=== PATIENT | female | born 1935 | race Caucasian/White ===

== ENCOUNTER 2017-02-01 20:22 | Inpatient (IN) | payer BC ==
--- NOTE | ~2017-02-01 | DS ---
Discharge Summary [facility] [address] [place]. [address] NAME: WES FORRESTER : 35 STATUS : DIS IN PAT#: [id number] AGE: 81 ADM/REG DATE : 02/02/17 MR#: [id number] REPORT SERV DATE: 02/04/17 DICTATED BY: JAROCHO FERNÁNDEZ DATE: 02/03/17 REPORT STATUS : Draft TRANSCRIBED BY: BRITTANY DATE: 02/03/17 ADMISSION DATE: 02/02/2017 DISCHARGE DATE: 02/03/2017 DISCHARGE DIAGNOSES: 1. Acute diverticulitis. 2. Escherichia coli urinary tract infection. 3. Hematochezia, resolved. 4. Chronic atrial fibrillation. 5. Chronic systolic heart failure. 6. History of coronary artery disease, status post coronary stents. 7. History of recent herpes zoster ophthalmicus, present on admission. 8. Hypertension. 9. Dyslipidemia. 10.Left adrenal adenoma. DISCHARGE CONDITION: Stable. INVASIVE PROCEDURE: None. IMAGING DURING THIS ADMISSION: CT abdomen and pelvis: 1. Extensive diverticulosis and diffuse colon wall thickening involving the sigmoid colon with mild infiltration of surrounding fat plain suspicious for acute diverticulitis pattern. Recommend consider follow up colonoscopy after appropriate treatment to confirm that there was no underlying neoplastic process. 2. Very large chronic hiatal hernia containing majority of the stomach within the thoracic cavity and now also containing a short segment of the non-incarcerated transverse colon not present on prior CT. 3. Status post cholecystectomy and apparent appendicectomy. 4. Small 1.3 left adrenal adenoma. 5. Probable prominent 3.4 cm diameter diverticulum of the 2nd portion of the duodenum. 6. Small cyst posterior midpole of the left kidney. HISTORY OF PRESENT ILLNESS: For detailed HPI, please make reference to Dr. Joel Flores's dictation on 02/02/2017. In brief, this is an 81-year-old female with medical history of recurrent diverticulitis, chronic atrial fibrillation, history of coronary artery disease, status post PCI, on Plavix and aspirin at home, who presented to the hospital with a chief complaint of abdominal pain and bright red blood per rectum of a day duration. Episode of bright red blood was precipitated by laxative use 24-hours prior to presentation. In the ER, blood pressure was 136/73, respiratory rate was 22, temperature 97.8, saturating 95% on room air. Physical exam was significant for left lower quadrant abdominal tenderness with localized guarding. No distention. No rebound. No palpably enlarged organomegaly. LABORATORY DATA: White blood cells 7.6, hemoglobin 13.4, platelets 372. Chemistry: Sodium 134, creatinine 1.0, lipase 265. Urinalysis: Large leukocyte esterase and positive nitrite. Discharge Summary [address] [address] NAME: WES FORRESTER : 35 STATUS : DIS IN PAT#: [id number] AGE: 81 ADM/REG DATE : 02/02/17 MR#: [id number] REPORT SERV DATE: 02/04/17 DICTATED BY: JAROCHO FERNÁNDEZ DATE: 02/03/17 REPORT STATUS : Draft TRANSCRIBED BY: BRITTANY DATE: 02/03/17 An assessment of acute diverticulitis and urinary tract infection was made in the ER. The patient was admitted to the Hospitalist Service. HOSPITAL COURSE: 1. Acute diverticulitis (recurrent). Blood cultures were taken. The patient was started on broad-spectrum antibiotics with IV levofloxacin and Flagyl. Gastroenterology was consulted, who will help guide the patient's management during the course of this admission. The patient's abdominal pain subsequently resolved. Bright red blood per rectum also subsequently resolved. It was noted that the patient should continue antibiotics treatment for a total of 7-10 days and follow up with Gastroenterology as an outpatient for possible colonoscopy. At the time of discharge, the patient was prescribed Flagyl and levofloxacin. 2. Bright red blood per rectum. The patient's hemoglobin ranged from 11 to 12.5 throughout the course of this admission. No further episodes of bright red blood per rectum noted during this admission. The patient was advised to follow up with Gastroenterology for possible colonoscopy. Etiology of bright red blood per rectum likely related to the patient's diverticulitis. Also during this admission, the patient's aspirin and Plavix were held. At the time of discharge, it was noted by GI that it is okay for patient to resume aspirin and Plavix and follow up with Gastroenterology as an outpatient. 3. History of coronary artery disease, status post PCI. No chest pain throughout the course of this admission. No acute ST-T wave changes. The patient's Plavix was transiently held, but at the time of discharge, the patient was advised to resume Plavix and aspirin and followup with primary senior publications specialist as an outpatient. 4. Urinary tract infection. The patient's urine culture was positive for E. coli. Blood cultures were negative. E. coli was sensitive to Cipro. The patient was advised to continue ciprofloxacin as an outpatient. DISCHARGE DISPOSITION: Home. DISCHARGE MEDICATIONS: 1. Levofloxacin 750 mg p.o. daily. 2. Flagyl 500 mg p.o. b.i.d. 3. Aspirin 81 mg p.o. daily. 4. Plavix 75 mg p.o. daily. 5. Atorvastatin 40 mg p.o. daily. 6. Cardizem 120 mg p.o. daily. 7. Lisinopril 5 mg p.o. daily. 8. Valacyclovir 500 mg p.o. t.i.d. to complete 10 days therapy. 9. Lorazepam 2 mg p.o. at bedtime. 10.Hydrochlorothiazide 12.5 mg p.o. daily. 11.Centrum Silver one p.o. daily. DISCHARGE FOLLOWUP: 1. Follow up with Gastroenterology within one to two weeks of discharge. 2. Follow up with primary care physician within one week of discharge. Discharge Summary [address] [address] NAME: WES FORRESTER : 35 STATUS : DIS IN PAT#: [id number] AGE: 81 ADM/REG DATE : 02/02/17 MR#: [id number] REPORT SERV DATE: 02/04/17 DICTATED BY: JAROCHO FERNÁNDEZ DATE: 02/03/17 REPORT STATUS : Draft TRANSCRIBED BY: BRITTANY DATE: 02/03/17 3. Continue followup with Ophthalmology for management of herpes zoster ophthalmicus which was present prior to this admission. Greater than 35 minutes was used to prepare this patient's discharge, reconcile medication, advise the patient on discharge plans and followup. DICTATED BY: MD INOCENTE Mccullough/BRITTANY Jarocho Fernández MD / [id number] CC: MD Reji Mccullough II, Wallace F.
--- NOTE | ~2017-02-01 | HP ---
History And Physical [address] [place]. [address] NAME: WES FORRESTER : 35 STATUS : ADM IN PAT#: [id number] AGE: 81 ADM/REG DATE : 02/02/17 MR#: [id number] REPORT SERV DATE: 02/02/17 DICTATED BY: ANJALI BAILEY DATE: 02/02/17 REPORT STATUS : Draft TRANSCRIBED BY: MODL DATE: 02/02/17 DATE OF ADMISSION: 02/02/2017 CHIEF COMPLAINT: An 81-year-old female presenting with abdominal pain and bright red blood per rectum. HISTORY OF PRESENTING ILLNESS: The patient's history was obtained through careful interview with the patient and daughter coupled with review of [facility] and [facility] medical records. About 3 p.m. on the afternoon of admission, the patient had sudden rectal urgency. She had taken some laxatives over the 24 hours prior because of constipation, and she began to have some slight loose stools. She developed increasing abdominal pain and then bloody stool by about 5 p.m. in the evening. She has left lower quadrant abdominal discomfort that radiates to the back, a cramping quality, 6 to 7/10 severity, that comes in severe waves. She has had fevers, chills, severe headache. No dysuria. No urinary frequency. No nausea or vomiting. No shortness of breath. No cough. No chest pain. No lightheadedness. REVIEW OF SYSTEMS: Otherwise, a 14-point review of systems was obtained and was negative. PAST MEDICAL HISTORY: 1. Coronary artery disease, status post stent placement, 2013. 2. Hypertension. 3. Atrial fibrillation. 4. Recurrent diverticulitis, seen by Dr. Woodruff. 5. Dyslipidemia. 6. Hiatal hernia. 7. Systolic congestive heart failure. Ejection fraction 45%, 2013. 8. Adrenal adenoma. 9. Left shingles to just the eye area on the left side. PAST SURGICAL HISTORY: 1. Cholecystectomy. 2. Appendectomy. 3. Hysterectomy. 4. C5 fracture neck surgery. ALLERGIES: NO KNOWN DRUG ALLERGIES. History And Physical [address] [address] NAME: WES FORRESTER : 35 STATUS : ADM IN [facility]#: [id number] AGE: 81 ADM/REG DATE : 02/02/17 MR#: [id number] REPORT SERV DATE: 02/02/17 DICTATED BY: ANJALI BAILEY DATE: 02/02/17 REPORT STATUS : Draft TRANSCRIBED BY: BRITTANY DATE: 02/02/17 SOCIAL HISTORY: Quit smoking more than 40 years ago. No alcohol abuse. 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 She became a 36 years ago. Lives with her daughter on [place], [place]. FAMILY HISTORY: Daughter with aortic valve replacement. Mother with coronary artery disease. Strong family history of stroke. CURRENT MEDICATIONS: Include eye drops, aspirin 81 mg p.o. daily, Lipitor 40 mg p.o. daily, Plavix 75 mg p.o. daily, Maxitrol eye drops, Diltiazem extended release 120 mg p.o. daily, hydrochlorothiazide 12.5 mg p.o. daily, lisinopril 5 mg p.o. daily, Ativan 2 mg at bedtime as needed, multivitamins, vitamin E, vitamin B, Valtrex 1 g p.o. t.i.d. PHYSICAL EXAMINATION: VITAL SIGNS: Temperature 97.8, pulse 92, blood pressure 136/76, respiratory rate 22, and O2 saturation 98% on room air. GENERAL: A pleasant, cooperative female, in evidence of mild distress secondary to her abdominal pain. HEENT: Pupils equally round and reactive to light. No conjunctival pallor. No scleral icterus. Nares are patent. Oropharynx is clear of obstruction. Moist mucous membranes. NECK: Trachea midline. No thyromegaly. LYMPHATIC: No cervical lymphadenopathy. No supraclavicular lymphadenopathy. RESPIRATORY: Clear to auscultation at bases. No wheezes, rales, or rhonchi. Normal respiratory effort. CARDIOVASCULAR: Regular rate and rhythm. No murmurs, rubs, or gallops. No extremity edema is appreciated. ABDOMEN: Significant left lower quadrant abdominal discomfort with localized guarding. No distention. Active bowel tones. No hepatosplenomegaly. DERMATOLOGIC: Warm and dry extremities. No pallor. No cyanosis. PSYCHIATRIC: Normal affect. Good mood. Alert and oriented x3. LABORATORY DATA: White blood cell count , hemoglobin 13, hematocrit 40, platelets 372. Sodium 134, potassium 4.1, chloride 105, bicarb 27, BUN 19, creatinine , glucose 99. INR 1.0. Lipase 265. Urinalysis shows 125 white blood cells, large leukocyte esterase, positive nitrites. STUDIES: 1. EKG by my own evaluation shows atrial fibrillation. 2. CT scan of the abdomen reported diverticulitis changes. ASSESSMENT AND PLAN: 1. Acute diverticulitis. Place on IV antibiotics, IV fluids. Full liquid diet. Provide supportive care. 2. Urinary tract infection. Check urine culture. Place on IV antibiotics. 3. Hematochezia. Obtain a GI consult with Dr. Woodruff. Hold Plavix and aspirin for now. 4. Atrial fibrillation. Has not been placed on anticoagulation by her outpatient installer technician. We will check telemetry. 5. Chronic systolic congestive heart failure. History And Physical [address] [address] NAME: WES FORRESTER : 35 STATUS : ADM IN [facility]#: [id number] AGE: 81 ADM/REG DATE : 02/02/17 MR#: [id number] REPORT SERV DATE: 02/02/17 DICTATED BY: ANJALI BAILEY DATE: 02/02/17 REPORT STATUS : Draft TRANSCRIBED BY: BRITTANY DATE: 02/02/17 6. Left eye shingles, seen in outpatient by Ophthalmology. Continue Valtrex. TAQUERIA/YENIFERL Anjali Bailey M.D. / [id number] CC: MD Jil Mccullough M.D. James Scott Manton, M.D.
--- NOTE | ~2017-02-01 | CN ---
Consultation Report [facility] [address] [place]. [address] NAME: WES FORRESTER : 35 STATUS : ADM IN PAT#: [id number] AGE: 81 ADM/REG DATE : 02/02/17 MR#: [id number] REPORT SERV DATE: 02/02/17 DICTATED BY: HARLEEN DUKES DATE: 02/02/17 REPORT STATUS : Draft TRANSCRIBED BY: MODL DATE: 02/02/17 GI CONSULTATION DATE OF CONSULTATION: 02/02/2017 REASON FOR CONSULTATION: Evaluation and management of hematochezia, acute diverticulitis, abdominal pain. HISTORY OF PRESENT ILLNESS: Ms. Forrester is a very pleasant 81-year-old female patient, who is known to Dr. Vick Woodruff in the outpatient setting, who presented on 02/02 with a chief complaint of abdominal pain and hematochezia. The patient states she had symptom onset yesterday around 1500 hours. She had had some problems with constipation earlier within the last 24 hours, which she treated with Senokot. She states that she had good results and had multiple bowel movements throughout the day yesterday. However, yesterday afternoon, around 3 o'clock, she began to pass bright red blood per rectum. She states that this happened several times. She had increasing left-sided abdominal pain, thus prompting her to come to [facility] Emergency Room for further evaluation. She states that she had subjective fevers, some chilling. No chest pain or shortness of breath. No dysuria. No nausea, no vomiting. No melena. She had a CT scan done on admission, which showed extensive diverticulosis and diffuse colon wall thickening involving the sigmoid with mild infiltration of the surrounding fat planes, suspicious for acute diverticulitis. She had also a very large chronic hiatal hernia that contained a majority of the stomach within the thoracic cavity, also containing a short segment of non-incarcerated transverse colon. She also had noted urinary tract infection on her UA on admission. She has been started on Levaquin and Flagyl. She feels somewhat better. She states the last time she passed stool or blood per rectum was around midnight last night in the emergency room before making it up to the room. Her white blood cell count has remained normal at 7.6 and 7.4. Her hemoglobin is stable, admission 13.4, presently 12.7. She states that she feels improved. She is still sore in the left side and is requesting to be discharged home today. However, I have discussed with the patient as well as the daughter that would keep her at least for 24 hours for IV antibiotics and to monitor for return of bleeding. There were no immediate plans for us to pursue colonoscopy at this time. The last time she underwent colonoscopy with Dr. Woodruff was 12/2013. This was followup from a colitis episode earlier in that year. On her colonoscopy, 01/23/2014, she had a normal terminal ileum, sigmoid colon, descending colon; diverticulosis; she has had some erythema in the sigmoid colon that was biopsied which returned within normal limits. She was last seen in our office in 06/2016 with complaints of melena and she was scheduled for an EGD, which she canceled as her melena complaints resolved. PAST MEDICAL HISTORY: Positive for colitis; diverticulosis; diverticulitis; hemorrhoids; coronary artery disease, MD, status post stenting; hypertension; atrial fibrillation; dyslipidemia; large hiatal hernia; systolic CHF, last ejection fraction was estimated at 45%; adrenal adenoma; left shingles to the eye. Consultation Report [place] [id number] [facility] [place]. [address] NAME: WES FORRESTER : 35 STATUS : ADM IN [facility]#: [id number] AGE: 81 ADM/REG DATE : 02/02/17 MR#: [id number] REPORT SERV DATE: 02/02/17 DICTATED BY: HARLEEN DUKES DATE: 02/02/17 REPORT STATUS : Draft TRANSCRIBED BY: BRITTANY DATE: 02/02/17 PAST SURGICAL HISTORY: Includes a cholecystectomy, appendectomy, hysterectomy, C5 fracture of the neck with surgical intervention, coronary artery stenting. ALLERGIES: SHE HAS NO KNOWN ALLERGIES. SOCIAL HISTORY: Past tobacco. No alcohol. No illicits. She is retired and lives with her daughter. FAMILY HISTORY: Noncontributory from a GI standpoint. HOME MEDICATIONS: Artificial tears, aspirin, Lipitor, Plavix, Maxitrol, Taztia, Microzide, Proventil, Ativan, Centrum multivitamin, vitamin E, vitamin B, Valtrex. REVIEW OF SYSTEMS: 10-point review of systems obtained, pertinent positives addressed in the history of present illness. PERTINENT LABORATORY DATA: Sodium 137, potassium is 3.7, BUN is 15, creatinine 0.91. White count 7.4, hemoglobin is 12.7 with hematocrit of 37.6, platelet count 309. INR of 1.1. PHYSICAL EXAMINATION: VITAL SIGNS: Temperature is 97.5, pulse 92, respirations 20, blood pressure 120/71. NEURO: Reveals an alert female, sitting up in the bed with no focal deficits being noted. GENERAL: Cooperative, in no apparent distress. Awake, alert, and oriented x3. HEAD, EARS, EYES, NOSE, AND THROAT: Anicteric. Pupils equal, round, reactive to light and accommodation. Normocephalic and atraumatic. NECK: No JVD. No palpable nodes. Supple. LUNGS: Clear anteriorly with normal respiratory effort exhibited. Equal expansion. CARDIOVASCULAR SYSTEM: Regular rate and rhythm. ABDOMEN: Soft with tenderness to palpation mildly to the left side with no rebound or guarding elicited on exam. She has no organomegaly appreciated. Active bowel sounds in all four quadrants. EXTREMITIES: No edema. Normal distal pulses. SKIN: Warm, dry, and intact. ASSESSMENT: 1. Acute sigmoid colon diverticulitis. 2. Abdominal pain secondary to acute sigmoid colon diverticulitis. 3. Hematochezia secondary to acute sigmoid colon diverticulitis. 4. Recent constipation. 5. Urinary tract infection, present on admission. 6. History of coronary artery disease, myocardial infarction and stent, on Plavix, currently on hold. Consultation Report [address] [place]. [address] NAME: WES FORRESTER : 35 STATUS : ADM IN [facility]#: [id number] AGE: 81 ADM/REG DATE : 02/02/17 MR#: [id number] REPORT SERV DATE: 02/02/17 DICTATED BY: HARLEEN DUKES DATE: 02/02/17 REPORT STATUS : Draft TRANSCRIBED BY: MODL DATE: 02/02/17 PLAN: 1. Full liquid diet, advance as tolerated to soft diet in the morning. 2. We will continue her IV antibiotics for at least 24 hours. 3. Monitor H and H. 4. No plans for colonoscopy at this point in time. 5. Would recommend, if no return of bleeding and able to tolerate a diet, that the patient could be discharged on 02/03/2017 to follow up with Dr. Woodruff in two to four weeks. We will follow. EL/BRITTANY WALI Lee / [id number] CC: MD Reji Mccullough II, Sam Rose
[~2017-02-01 20:22] MED LIST: ASAB PO; ATIVAN2 MG PO; ATV.5 PO; ATV1 PO; AVAPRO300 MG PO; BENICAR; CENTRUM TAB1 TAB PO; CIP5 PO; COREG3 PO; DEXLANSOPRAZOLE; HALF81 PO; HYDROCHLOROT12.5 MG PO; HYZAAR 50/12.51 TAB PO; KAPIDEX60 MG PO; LOP25 PO; LOTENSIN HCT1 TA1 PO; PLAVIX PO; POT GLUCONAT595 M1 PO; POTASSIUM PO; PRIN5 PO; TOPXL25 PO; VIT; VITAM; VITAMIN B-625 MG PO; VITAMIN D; VITAMIN E; ZANTAC 75 PO; ZOCOR40 PO
[2017-02-01 21:11] LABS: BASOPHILS 0.5 %; BASOPHILS ABSOLUTE 0.04 10/3/uL (0.0-0.16); EOSINOPHILS 0.9 %; EOSINOPHILS ABSOLUTE 0.07 10/3/uL (0.0-0.53); ER CBC TAT 0 Hrs 07 Mins; HEMATOCRIT 40.1 % (36.0-48.0); HEMOGLOBIN 13.4 g/dL (12.0-16.0); IMMATURE GRANULOCYTES 0.1 %; IMMATURE GRANULOCYTES ABSOLUTE 0.01 10/3/uL (0.0-0.11); LYMPHOCYTES ABSOLUTE 1.36 10/3/uL (0.67-4.30); MEAN CORPUS HGB CONC 33.4 g/dL (32.0-36.0); MEAN CORPUSCULAR HEMOGLOB 30.7 pg (26.0-34.0); MEAN PLATELET VOLUME 8.3 fL (9.2-13.0); MONOCYTES 6.7 %; MONOCYTES ABSOLUTE 0.51 10/3/uL (0.21-1.20); NEUTROPHILS 73.8 %; NEUTROPHILS ABSOLUTE 5.57 10/3/uL (2.02-8.40); PLATELET COUNT 372 10/3/uL (150-400); RBC DISTRIBUTION WIDTH 13.7 % (12.0-16.0); RED CELL COUNT 4.36 10/6/uL (4.0-5.6); WHITE BLOOD CELLS 7.6 10/3/uL (4.5-10.5)
[2017-02-01 21:12] LABS: MANUAL DIFF NO %
[2017-02-01 21:29] LABS: PARTIAL THROMBO TIME 20.1 SEC (22.5-37.2)
[2017-02-01 21:33] LABS: A/G RATIO 1.2 (0.7-1.9); ALBUMIN 3.7 G/DL (3.5-5.0); BUN (BLOOD UREA NITROGEN) 19 MG/DL (6-23); CALCIUM, SERUM 9.2 MG/DL (8.5-10.4); CHLORIDE, SERUM 105 MMOL/L (96-112); CO2 (CARBON DIOXIDE) 27 MMOL/L (24-34); GFR AFRICAN AMERICAN 61 ML/MIN (>=60); GFR NON AFRICAN AMERICAN 53 ML/MIN (>=60); GLOBULIN 3.2 G/DL (2.5-4.1); GLUCOSE, SERUM 99 MG/DL (60-99); POTASSIUM, SERUM 4.1 MMOL/L (3.5-5.3); SGOT(AST) 18 U/L (5-40); SGPT(ALT) 22 U/L (5-65); SODIUM, SERUM 134 MMOL/L (135-148); TOTAL BILIRUBIN 0.4 MG/DL (0-1.2); TOTAL PROTEIN 6.9 G/DL (6.0-8.5)
[2017-02-01 21:34] LABS: ALKALINE PHOSPHATASE 103 U/L (45-117)
[2017-02-01 21:51] LABS: DIRECT BILIRUBIN 0.1 MG/DL (0.0-0.4); INDIRECT BILIRUBIN(NOT ORDER) 0.3 MG/DL (0.1-0.9)
[2017-02-01 22:25] LABS: ASCORBIC ACID (UR NOT ORDER) NEG (NEG); BILIRUBIN, URINE NEGATIVE (NEG); ER URINALYSIS TAT 0 Hrs 16 Mins; KETONE, URINE TRACE MG/DL (NEG); LEUKOCYTE ESTERASE(NOT OR LARGE (NEG); NITRITE (URINE) POS (NEG); WBC (NOT ORDERED) (RFLEX) 125 (0-5)
[2017-02-01] MEDS ORDERED: MAXITOINT OPH (23:51)
[2017-02-01] MEDS ORDERED: VALTREX5 PO (23:56)
[2017-02-01] MEDS ORDERED: TAZTIA X4 PO (23:57)
[2017-02-01] MEDS ORDERED: MICROZIDE PO (23:58)
[2017-02-01] MEDS ORDERED: PLAVIX PO (23:58)
[2017-02-01] MEDS ORDERED: PRIN5 PO (23:58)
[2017-02-01] MEDS ORDERED: ATIVAN2 MG PO (23:58)
[2017-02-01] MEDS ORDERED: CENTRUM PO (23:59)
[2017-02-01] MEDS ORDERED: HALF81 PO (23:59)
[2017-02-02] MEDS ORDERED: VITAMIN E OTC PO (00:01)
[2017-02-02] MEDS ORDERED: VITAMIN B OTC PO (00:02)
[2017-02-02] MEDS ORDERED: REFRESH OPH (00:05)
[2017-02-02] MEDS ORDERED: LIPITOR40 PO (00:14)
[2017-02-02 06:04] LABS: BASOPHILS 0.4 %; BASOPHILS ABSOLUTE 0.03 10/3/uL (0.0-0.16); EOSINOPHILS 1.5 %; EOSINOPHILS ABSOLUTE 0.11 10/3/uL (0.0-0.53); HEMATOCRIT 37.6 % (36.0-48.0); HEMOGLOBIN 12.7 g/dL (12.0-16.0); IMMATURE GRANULOCYTES 0.3 %; IMMATURE GRANULOCYTES ABSOLUTE 0.02 10/3/uL (0.0-0.11); LYMPHOCYTES 14.8 %; LYMPHOCYTES ABSOLUTE 1.09 10/3/uL (0.67-4.30); MEAN CORPUS HGB CONC 33.8 g/dL (32.0-36.0); MEAN CORPUSCULAR HEMOGLOB 31.1 pg (26.0-34.0); MEAN CORPUSCULAR VOLUME 91.9 fL (80-100); MEAN PLATELET VOLUME 8.1 fL (9.2-13.0); MONOCYTES 6.2 %; MONOCYTES ABSOLUTE 0.46 10/3/uL (0.21-1.20); NEUTROPHILS 76.8 %; NEUTROPHILS ABSOLUTE 5.66 10/3/uL (2.02-8.40); PLATELET COUNT 309 10/3/uL (150-400); RBC DISTRIBUTION WIDTH 13.7 % (12.0-16.0); RED CELL COUNT 4.09 10/6/uL (4.0-5.6); WHITE BLOOD CELLS 7.4 10/3/uL (4.5-10.5)
[2017-02-02 06:05] LABS: MANUAL DIFF NO %
[2017-02-02 06:14] LABS: INTERNATIONAL NORMAL RATI 1.1 UNITS (-); PARTIAL THROMBO TIME 23.8 SEC (22.5-37.2); PROTIME (NOT ORD) 14.2 SEC (12.0-14.5)
[2017-02-02 06:33] LABS: A/G RATIO 1.1 (0.7-1.9); ALBUMIN 3.1 G/DL (3.5-5.0); ALKALINE PHOSPHATASE 94 U/L (45-117); BUN (BLOOD UREA NITROGEN) 15 MG/DL (6-23); CALCIUM, SERUM 8.4 MG/DL (8.5-10.4); CHLORIDE, SERUM 109 MMOL/L (96-112); CO2 (CARBON DIOXIDE) 24 MMOL/L (24-34); CREATININE 0.91 MG/DL (0.55-1.02); GFR AFRICAN AMERICAN 69 ML/MIN (>=60); GFR NON AFRICAN AMERICAN 59 ML/MIN (>=60); GLOBULIN 2.9 G/DL (2.5-4.1); GLUCOSE, SERUM 94 MG/DL (60-99); POTASSIUM, SERUM 3.7 MMOL/L (3.5-5.3); SGOT(AST) 19 U/L (5-40); SGPT(ALT) 20 U/L (5-65); SODIUM, SERUM 137 MMOL/L (135-148); TOTAL BILIRUBIN 0.5 MG/DL (0-1.2)
[2017-02-02 16:04] LABS: HEMATOCRIT 36.3 % (36.0-48.0); HEMOGLOBIN 12.1 g/dL (12.0-16.0)
[2017-02-02 21:32] LABS: HEMATOCRIT 37.1 % (36.0-48.0); HEMOGLOBIN 12.3 g/dL (12.0-16.0)
[2017-02-03 06:22] LABS: BASOPHILS 0.8 %; BASOPHILS ABSOLUTE 0.04 10/3/uL (0.0-0.16); EOSINOPHILS 3.2 %; EOSINOPHILS ABSOLUTE 0.17 10/3/uL (0.0-0.53); HEMATOCRIT 36.1 % (36.0-48.0); HEMOGLOBIN 11.8 g/dL (12.0-16.0); IMMATURE GRANULOCYTES 0.2 %; IMMATURE GRANULOCYTES ABSOLUTE 0.01 10/3/uL (0.0-0.11); LYMPHOCYTES 22.5 %; LYMPHOCYTES ABSOLUTE 1.19 10/3/uL (0.67-4.30); MEAN CORPUS HGB CONC 32.7 g/dL (32.0-36.0); MEAN CORPUSCULAR HEMOGLOB 30.6 pg (26.0-34.0); MEAN CORPUSCULAR VOLUME 93.5 fL (80-100); MEAN PLATELET VOLUME 8.2 fL (9.2-13.0); MONOCYTES 12.5 %; MONOCYTES ABSOLUTE 0.66 10/3/uL (0.21-1.20); NEUTROPHILS 60.8 %; NEUTROPHILS ABSOLUTE 3.21 10/3/uL (2.02-8.40); PLATELET COUNT 289 10/3/uL (150-400); RBC DISTRIBUTION WIDTH 14.1 % (12.0-16.0); RED CELL COUNT 3.86 10/6/uL (4.0-5.6); WHITE BLOOD CELLS 5.3 10/3/uL (4.5-10.5)
[2017-02-03 06:24] LABS: MANUAL DIFF NO %
[2017-02-03 06:34] LABS: BUN (BLOOD UREA NITROGEN) 12 MG/DL (6-23); CALCIUM, SERUM 8.3 MG/DL (8.5-10.4); CHLORIDE, SERUM 109 MMOL/L (96-112); CO2 (CARBON DIOXIDE) 25 MMOL/L (24-34); CREATININE 0.94 MG/DL (0.55-1.02); GFR AFRICAN AMERICAN 66 ML/MIN (>=60); GFR NON AFRICAN AMERICAN 57 ML/MIN (>=60); GLUCOSE, SERUM 86 MG/DL (60-99); PHOSPHORUS, SERUM 2.5 MG/DL (2.5-4.5); POTASSIUM, SERUM 3.7 MMOL/L (3.5-5.3); SODIUM, SERUM 141 MMOL/L (135-148)
[2017-02-03] MEDS ORDERED: FLORASTOR250 MG (10:36)
[2017-02-03] MEDS ORDERED: LEVAQUIN750 MG PO (10:37)
[2017-02-03] MEDS ORDERED: FLAG500TAB PO (10:37)
== END 2017-02-03 13:28 | disposition home or self-care (01) | DRG 378 ==
LOC: ER 20:22 → 7NO 02-02 00:56
PROVIDERS: Hospitalist; Nurse Practitioner; Nurse Practitioner Family
DX: K57.33 Diverticulitis of large intestine without perforation or abscess with bleeding (principal); N39.0 Urinary tract infection, site not specified; I50.22 Chronic systolic (congestive) heart failure; I11.0 Hypertensive heart disease with heart failure; I25.10 Atherosclerotic heart disease of native coronary artery without angina pectoris; B96.20 Unspecified Escherichia coli [E. coli] as the cause of diseases classified elsewhere; K44.9 Diaphragmatic hernia without obstruction or gangrene; E78.5 Hyperlipidemia, unspecified; I48.2 Chronic atrial fibrillation; D35.02 Benign neoplasm of left adrenal gland; K59.00 Constipation, unspecified; Z90.49 Acquired absence of other specified parts of digestive tract; Z95.5 Presence of coronary angioplasty implant and graft; Z79.82 Long term (current) use of aspirin; Z79.02 Long term (current) use of antithrombotics/antiplatelets; Z90.710 Acquired absence of both cervix and uterus
CPT/HCPCS: 36415; 74176; 80048; 80053; 81001; 82150; 82248; 83605; 83690; 83735; 84100; 84443; 85014; 85018; 85025; 85610; 85730; 86850; 86900; 86901; 87077; 87086; 87186; 93005; 96365; 99285; A9270-GY; J1956; J2405